=== PATIENT | female | born 1960 | race Caucasian/White ===

== ENCOUNTER 2017-02-18 15:58 | Emergency (ER) | payer MEDICARE, OTHER ==
[~2017-02-18] VITALS: Ht 157.5 cm; Wt 54.4 kg
[~2017-02-18 15:58] MED LIST: CLON1TAB PO; CYCL10TA2 PO; GABA600T2 PO; IBUP-1027 PO
[2017-02-18 16:55] VITALS: BP 131/81
[2017-02-18] MEDS ORDERED: NAPR500T PO (17:28)
[2017-02-18] MEDS ORDERED: ACET325T9 PO (17:28)
--- NOTE | 2017-02-18 17:29 | PHYS DOC ---
Past Medical History Past Medical History: Fibromyalgia Past Surgical History: Tubal ligation, Other Additional Past Surgical Histo: ear surgery Smoking: Cigarettes, Greater than 1 pack/day Alcohol Use: Occasionally Drug Use: None Adult General Chief Complaint Chief Complaint: KNEE INJURY [facility] HPI This patient is a pleasant 56-year-old female who is walking around the corner actually hitting the inside of her right leg knee on a metal table. Since that time she's had localized sharp pain with no joint instability. Pain is described as dull and achy with some sharp pain with movements. The symptoms as moderate in nature. She denies any prior injury to this leg denies any locking or popping the knee itself or joint instability. Review of Systems Review of Systems Constitutional: Denies fever or chills [] Eyes: Denies change in visual acuity, redness, or eye pain [] HENT: Denies nasal congestion or sore throat [] Respiratory: Denies cough or shortness of breath [] Cardiovascular: No additional information not addressed in HPI [] GI: Denies abdominal pain, nausea, vomiting, bloody stools or diarrhea [] : Denies dysuria or hematuria [] Musculoskeletal: Her major complaint is only joint pain on right knee and arthralgias. Integument: Planes of a localized soft tissue swelling to the medial aspect of the right knee. Neurologic: Denies headache, focal weakness or sensory changes [] Allergies Allergies Allergies Coded Allergies Type Severity Reaction Last Updated Verified No Known Drug Allergies 01/23/14 No Physical Exam Physical Exam Vital signs reviewed by me normal Constitutional: Well developed, well nourished, no acute distress, non-toxic appearance. [] Skin: Warm, dry, no erythema, no rash. Small ecchymoses noted on the inside medial aspect of the right knee. It is about a 1 cm x 1 cm in size. Extremities: Tenderness to palpation noted on the medial aspect of the right knee. Patient has an anterior posterior draw test is negative. She has Akin test and Curtis tests are negative. Patient has no evidence of laxity on lateral and medial stress. Patient is focal tenderness palpation around this contusion to the hospital aspect of the knee. Neurologic: Alert and oriented X 3, normal motor function, normal sensory function, no focal deficits noted. [] Psychologic: Affect normal, judgement normal, mood normal. [] Current Patient Data Vital Signs Vital Signs Date Time Temp Pulse Resp B/P (MAP) Pulse Ox O2 Delivery O2 Flow Rate FiO2 02/18/17 16:55 97.5 94 20 99 Room Air 97.5 EKG EKG [] Radiology/Procedures Radiology/Procedures [] 4. X-ray of the right knee demonstrates osteoporosis but no evidence of fracture, no patella alter, no soft tissue swelling and no foreign body. X-rays read by Dr. Natarajan. Course & Med Decision Making Course & Med Decision Making Pertinent Labs and Imaging studies reviewed. (See chart for details) [] Dragon Disclaimer Dragon Disclaimer This electronic medical record was generated, in whole or in part, using a voice recognition dictation system. Departure Departure Impression: Primary Impression: Knee contusion Disposition: 01 HOME, SELF-CARE Condition: STABLE Referrals: ROLDAN FREEMAN MD (PCP) Patient Instructions: Contusion Additional Instructions: Is return for any new or increasing pain not improved with Motrin and Tylenol. Please return for any joint instability or pain not well controlled and over-the -counter medications as prescribed. Scripts Acetaminophen (TYLENOL) 325 Mg Tablet 1-2 TAB PO QID, #60 TAB 2 Refills Prov: TAM NATARAJAN MD 02/18/17 Naproxen (NAPROSYN) 500 Mg Tablet 1 TAB PO BID, #14 TAB 1 Refill Prov: TAM NATARAJAN MD 02/18/17 TAM NATARAJAN MD Feb 18, 2017 17:29
--- NOTE | 2017-02-19 07:41 | RAD ---
Indication injury. Pain. AP oblique and lateral views of the right knee were obtained as well as a sunrise view. No bony abnormality is seen
== END 2017-02-18 17:49 | disposition home or self-care (01) ==
LOC: ER 15:58
DX: S80.01XA Contusion of right knee, initial encounter (principal); M79.7 Fibromyalgia; F17.210 Nicotine dependence, cigarettes, uncomplicated; W22.8XXA Striking against or struck by other objects, initial encounter; Y93.01 Activity, walking, marching and hiking; Y92.89 Other specified places as the place of occurrence of the external cause; Y99.8 Other external cause status
CPT/HCPCS: 73564; 99284

== ENCOUNTER 2017-07-31 13:41 | Emergency (ER) | payer MEDICARE, OTHER ==
[2017-07-31 14:28] LABS: BILIRUBIN,URINE NEGATIVE (NEG); CLARITY,URINE CLEAR; COLOR,URINE YELLOW; GLUCOSE,URINE NEGATIVE (NEG); NITRITE,URINE NEGATIVE (NEG); PH,URINE 7.5; PROTEIN,URINE NEGATIVE (NEG-TRACE); UROBILINOGEN,URINE 0.2 mg/dL (0.2 mg/dL)
[2017-07-31] MEDS ORDERED: CONTRAST GIVEN MC (14:30)
[2017-07-31 14:44] LABS: BACTERIA,URINE MODERATE /HPF (0-FEW); RBC,URINE 0 /HPF (0-2); SQUAMOUS EPITHELIAL CELL,UR MOD /LPF
[2017-07-31 14:54] LABS: ADD MAN DIFF? NO
[2017-07-31 14:57] LABS: BASO # 0.1 x10^3/uL (0.0-0.2); BASO % 1 % (0-3); EOS # 0.1 x10^3/uL (0.0-0.7); EOS % 2 % (0-3); HEMATOCRIT 40.4 % (36.0-47.0); HEMOGLOBIN 14.2 g/dL (12.0-15.5); LYMPH # 2.5 x10^3/uL (1.0-4.8); LYMPH % 27 % (24-48); MEAN CORPUSCULAR HEMOGLOBIN 34 pg (25-35); MEAN CORPUSCULAR HGB CONC 35 g/dL (31-37); MEAN CORPUSCULAR VOLUME 97 fL (79-100); MONO # 0.4 x10^3/uL (0.0-1.1); MONO % 5 % (0-9); NEUT % 65 % (31-73); PLATELET COUNT 344 x10^3/uL (140-400); RED BLOOD COUNT 4.18 x10^6/uL (3.50-5.40); RED CELL DISTRIBUTION WIDTH 14.6 % (11.5-14.5); WHITE BLOOD COUNT 9.2 x10^3/uL (4.0-11.0)
[2017-07-31 15:07] LABS: ANION GAP 8 (6-14); BLOOD UREA NITROGEN 13 mg/dL (7-20); CALCIUM 9.5 mg/dL (8.5-10.1); CARBON DIOXIDE 32 mmol/L (21-32); CHLORIDE 103 mmol/L (98-107); CREATININE 0.8 mg/dL (0.6-1.0); GFR 73.9; GLUCOSE 103 mg/dL (70-99); INR 0.9 (0.8-1.1); PARTIAL THROMBOPLASTIN TIME 27 SEC (24-38); POTASSIUM 3.5 mmol/L (3.5-5.1); PROTHROMBIN TIME PATIENT 11.8 SEC (11.7-14.0); SODIUM 143 mmol/L (136-145)
[2017-07-31 15:10] LABS: INFLUENZA A PATIENT NEGATIVE (NEGATIVE); INFLUENZA B PATIENT NEGATIVE (NEGATIVE); OBC FLU VALID
[2017-07-31 15:13] LABS: ALBUMIN 3.8 g/dL (3.4-5.0); ALK PHOS 92 U/L (46-116); ALT (SGPT) 23 U/L (14-59); AST (SGOT) 19 U/L (15-37); DIRECT BILIRUBIN 0.1 mg/dL (0.0-0.2); TOTAL BILIRUBIN 0.3 mg/dL (0.2-1.0); TOTAL PROTEIN 7.3 g/dL (6.4-8.2)
[2017-07-31] MEDS: IOHEXOL 300 MG/ML 100ML VIAL. IV (15:41)
[2017-07-31 16:11] LABS: FECAL OB PT POSITIVE (NEG); NEG OBC FOB NEG; POS OBC FOB POS
== END 2017-07-31 17:30 | disposition home or self-care (01) ==
LOC: ER 13:41
DX: K64.4 Residual hemorrhoidal skin tags (principal); R50.9 Fever, unspecified; M79.1 Myalgia; M79.7 Fibromyalgia; Z98.51 Tubal ligation status
CPT/HCPCS: 36415; 71045; 74177; 80048; 80076; 81001; 82274; 85025; 85610; 85730; 87086; 87804; 87804-59; 99285-25; Q9967

== ENCOUNTER 2020-06-27 05:46 | Emergency (ER) | payer MEDICARE, MEDICAID ==
[2017-07-31 17:30] VITALS: BP 124/79
[~2020-06-27] VITALS: Ht 160 cm; Wt 50.0 kg
[~2020-06-27 05:46] MED LIST changes: +ACET325T9 PO; -GABA600T2 PO; +GABA600T7 PO; +HYDR30CR61 TP; +NAPR-683 PO
[2020-06-27] MEDS ORDERED: LIDO700A21 TP (06:14)
[2020-06-27] MEDS ORDERED: VALA10008 PO (06:14)
[2020-06-27] MEDS ORDERED: GABA300C18 PO (06:14)
--- NOTE | 2020-06-27 06:14 | PHYS DOC ---
Past Medical History Past Medical History: Anxiety, Depression, Fibromyalgia Past Surgical History: Tubal ligation, Other Additional Past Surgical Histo: ear surgery Smoking Status: Current Every Day Smoker Alcohol Use: Occasionally Drug Use: None General Adult EDM: Chief Complaint: SHINGLES HPI: HPI: History obtained from patient. Patient is a 59-year-old female who presents with chief complaint of painful rash. Patient states she was diagnosed with shingles approximately 2 weeks ago. She states that she did complete a course of steroids and 2 other medications but she is not sure the name of those medicines. States the rash has begun to scab over. States however she still continues to have pain. She notes that the rash is located in her left lower back and left lower quadrant regions. She denies any vomiting. She denies any fevers. She denies any drainage from the rash. States it does not cross midline. States that her family physician said they would call in pain patches last week but for whatever reason her physician has not called them yet. Patient has been trying Tylenol at home with minimal relief. States the pain has been uncomfortable to the point where she cannot sleep. No other complaints. Review of Systems: Review of Systems: Constitutional: Denies fever or chills. [] Eyes: Denies change in visual acuity. [] HENT: Denies nasal congestion or sore throat. [] Respiratory: Denies cough or shortness of breath. [] Cardiovascular: Denies chest pain or edema. [] GI: Denies abdominal pain, nausea, vomiting, bloody stools or diarrhea. [] : Denies dysuria. [] Musculoskeletal: Denies back pain or joint pain. [] Integument: Positive for rash Neurologic: Denies headache, focal weakness or sensory changes. [] Endocrine: Denies polyuria or polydipsia. [] Lymphatic: Denies swollen glands. [] Psychiatric: Denies depression or anxiety. [] Heart Score: Risk Factors: Risk Factors: DM, Current or recent (<one month) smoker, HTN, HLP, family history of CAD, obesity. Risk Scores: Score 0 - 3: 2.5% MACE over next 6 weeks - Discharge Home Score 4 - 6: 20.3% MACE over next 6 weeks - Admit for Clinical Observation Score 7 - 10: 72.7% MACE over next 6 weeks - Early Invasive Strategies Allergies: Allergies: Allergies Coded Allergies Type Severity Reaction Last Updated Verified No Known Drug Allergies 01/23/14 No Physical Exam: PE: Constitutional: Well developed, well nourished, no acute distress, non-toxic appearance. [] HENT: Normocephalic, atraumatic, bilateral external ears normal, oropharynx moist, no oral exudates, nose normal. [] Eyes: PERRLA, EOMI, conjunctiva normal, no discharge. [] Neck: Normal range of motion, no tenderness, supple, no stridor. [] Cardiovascular:Heart rate regular rhythm, no murmur [] Lungs & Thorax: Bilateral breath sounds clear to auscultation [] Abdomen: soft, no tenderness, no masses, no pulsatile masses. [] Skin: Dried vesicular lesions present in the left lumbar paraspinal region and left lower quadrants. Does not cross midline. No active drainage. No purpura, bulla, petechiae, or mucous membrane involvement Back: No tenderness, no CVA tenderness. [] Extremities: No tenderness, no cyanosis, no clubbing, ROM intact, no edema. [] Neurologic: Alert and oriented X 3, normal motor function, normal sensory function, no focal deficits noted. [] Psychologic: Affect normal, judgement normal, mood normal. [] EKG: EKG: [] Radiology/Procedures: Radiology/Procedures: [] Course & Med Decision Making: Course & Med Decision Making Pertinent Labs and Imaging studies reviewed. (See chart for details) [] Patient is an overall well-appearing 59-year-old female who presents with [facility] complaint of painful rash. Clinically the rash does appear consistent with healing vesicular lesions. Dermatomal distribution. Likely shingles in nature. She will be given a short course of gabapentin, acyclovir and Lidoderm patches today. She was instructed to follow-up with her primary care physician in the next 2 to 3 days. Return precautions discussed and understood. Stable for discharge home. Reynaldo Disclaimer: Reynaldo Disclaimer: This electronic medical record was generated, in whole or in part, using a voice recognition dictation system. Departure Departure Impression: Primary Impression: Shingles Qualified Codes: B02.9 - Zoster without complications Disposition: 01 DC HOME SELF CARE/HOMELESS Condition: STABLE Referrals: NO PCP (PCP) RACHEL KIM MD Patient Instructions: Shingles, Shingles, [id number] Additional Instructions: Please follow-up with your primary care physician in the next 2 to 3 days. Scripts Valacyclovir Hcl (VALACYCLOVIR) 1,000 Mg Tablet 1 TAB PO TID, #21 TAB Prov: CHANELL CARMICHAEL DO 06/27/20 Lidocaine (Lidocaine PATCH ) 1 Each Adh..patch 1 EACH TP DAILY for FOR LOCAL PAIN for 5 Days, #5 PATCH REMOVE AFTER 12 HOURS. 4% Prov: CHANELL CARMICHAEL DO 06/27/20 Gabapentin (GABAPENTIN ) 300 Mg Capsule 300 MG PO TID for NEUROGENIC PAIN for 5 Days, #15 CAP Prov: CHANELL CARMICHAEL DO 06/27/20 CHANELL CARMICHAEL DO Jun 27, 2020 06:14
== END 2020-06-27 06:30 | disposition home or self-care (01) ==
LOC: ER 05:46
DX: B02.9 Zoster without complications (principal); R21 Rash and other nonspecific skin eruption; F41.9 Anxiety disorder, unspecified; F32.9 Major depressive disorder, single episode, unspecified; M79.7 Fibromyalgia; F17.200 Nicotine dependence, unspecified, uncomplicated; Z98.51 Tubal ligation status; Z98.890 Other specified postprocedural states
CPT/HCPCS: 99283

== ENCOUNTER 2020-10-18 00:45 | Emergency (ER) | payer MEDICAID, MEDICARE ==
[~2020-10-18] VITALS: Ht 154.9 cm; Wt 50.0 kg
[~2020-10-18 00:45] MED LIST changes: +GABA300C18 PO; +LIDO700A21 TP; +VALA10008 PO
[2020-10-18 01:29] LABS: BASO # 0.1 x10^3/uL (0.0-0.2); BASO % 1 % (0-3); EOS # 0.1 x10^3/uL (0.0-0.7); EOS % 2 % (0-3); HEMATOCRIT 37.5 % (36.0-47.0); HEMOGLOBIN 12.9 g/dL (12.0-15.5); LYMPH # 3.3 x10^3/uL (1.0-4.8); LYMPH % 38 % (24-48); MEAN CORPUSCULAR HEMOGLOBIN 32 pg (25-35); MEAN CORPUSCULAR HGB CONC 35 g/dL (31-37); MEAN CORPUSCULAR VOLUME 93 fL (79-100); MONO # 0.7 x10^3/uL (0.0-1.1); MONO % 8 % (0-9); NEUT # 4.4 x10^3/uL (1.8-7.7); NEUT % 52 % (31-73); PLATELET COUNT 489 x10^3/uL (140-400); RED BLOOD COUNT 4.04 x10^6/uL (3.50-5.40); RED CELL DISTRIBUTION WIDTH 13.3 % (11.5-14.5); WHITE BLOOD COUNT 8.5 x10^3/uL (4.0-11.0)
[2020-10-18 01:40] LABS: CALCIUM 9.3 mg/dL (8.5-10.1); CREATININE 1.1 mg/dL (0.6-1.0); GFR 50.7; POTASSIUM 3.7 mmol/L (3.5-5.1)
[2020-10-18 01:45] LABS: BARBITURATES NEG (NEG); BENZODIAZEPINES NEG (NEG); CANNABINOIDS POS (NEG); COCAINE NEG (NEG); METHADONE NEG (NEG); OPIATES NEG (NEG); PHENCYCLIDINE NEG (NEG)
[2020-10-18 01:45] LABS: ALBUMIN 3.5 g/dL (3.4-5.0); ALBUMIN/GLOBULIN RATIO 1.1 (1.0-1.7); TOTAL BILIRUBIN 0.4 mg/dL (0.2-1.0); TOTAL PROTEIN 6.7 g/dL (6.4-8.2)
[2020-10-18 01:47] LABS: AMPHETAMINE/METHAMPHETAMINE POS (NEG)
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
[2020-10-18 02:53] VITALS: BP 115/70
== END 2020-10-18 03:29 | disposition home or self-care (01) ==
LOC: ER 00:45
DX: F20.9 Schizophrenia, unspecified (principal); F41.9 Anxiety disorder, unspecified; F32.9 Major depressive disorder, single episode, unspecified; M79.7 Fibromyalgia; F17.200 Nicotine dependence, unspecified, uncomplicated; Z98.51 Tubal ligation status; Z98.890 Other specified postprocedural states
CPT/HCPCS: 36415; 80053; 80307; 85025; 99283; G0480